=== PATIENT | female | born 1970 | race Caucasian/White ===

== ENCOUNTER → 2023-05-26 06:33 | Outpatient (REF) | payer BC, SELFPAY | LOC: MRI 3T 06:33 | PROVIDERS: ATTENDING PHYSICIAN Orthopaedic Surgery Hand Surgery | DX: M25.512 Pain in left shoulder (principal) | CPT/HCPCS: 73221 ==

== ENCOUNTER → 2023-06-17 08:00 | Outpatient (REF) | payer BC, SELFPAY | LOC: RCS 08:00 | PROVIDERS: ATTENDING PHYSICIAN Orthopaedic Surgery Hand Surgery | DX: Z01.818 Encounter for other preprocedural examination (principal) | CPT/HCPCS: 93005 ==

== ENCOUNTER 2023-06-27 06:02 | Day surgery (SDC) | payer BC, SELFPAY ==
[2023-06-27] VITALS (12 sets, daily range): BP systolic 92–123; BP diastolic 50–76; BMI 22.2
[2023-06-27] MEDS: CELEBREX 200 MG PO (06:30)
[2023-06-27] MEDS: TYLENOL 1000 MG PO (06:31)
[2023-06-27] MEDS: DILAUDID 0.25 MG IV ×2 (09:00→09:16)
[2023-06-27] MEDS: ROXICODONE 5 MG PO (10:04)
== END 2023-06-27 10:40 | disposition home or self-care (01) ==
LOC: SDS 06:02
PROVIDERS: ATTENDING PHYSICIAN Orthopaedic Surgery Hand Surgery
DX: M75.42 Impingement syndrome of left shoulder (principal); S43.432A Superior glenoid labrum lesion of left shoulder, initial encounter; X58.XXXA Exposure to other specified factors, initial encounter
CPT/HCPCS: 29807; 29828; 29826; C1713

== ENCOUNTER 2023-08-03 19:05 | Outpatient (RCR) | payer BC, SELFPAY | END 2023-08-03 23:59 | disposition home or self-care (01) | LOC: RPT 19:05 | PROVIDERS: ATTENDING PHYSICIAN Physician Assistant Surgical; FAMILY PHYSICIAN Family Medicine | DX: Z47.89 Encounter for other orthopedic aftercare (principal); Z53.33 Arthroscopic surgical procedure converted to open procedure; Z73.6 Limitation of activities due to disability | CPT/HCPCS: 97110; 97140; 97163 ==

== ENCOUNTER → 2023-08-21 10:27 | Outpatient (REF) | payer BC, SELFPAY ==
[2023-08-21 12:12] LABS: % Basophils 0.8 % (0-2); % Eosinophils 1.2 % (0-6); % Immature Granulocytes 0.6 % (0-0.5); % Monocytes 6.4 % (1.7-9.3); Absolute Basophils 0.1 10^3/uL (0-0.2); Absolute Eosinophils 0.1 10^3/uL (0-0.7); Absolute Immature Granulocytes 0.1 10^3/uL (0-0.05); Absolute Lymphocytes 2.8 10^3/uL (1.2-3.4); Absolute Monocytes 0.6 10^3/uL (0.1-0.6); Absolute Neutrophils 5.1 10^3/uL (1.4-6.5); Hematocrit 40.5 % (37.0-47.0); Hemoglobin 13.6 g/dL (12.0-16.0); Mean Corp Hgb Conc. 33.6 g/dL (33.0-37.0); Mean Corpuscular Hgb 31.6 pg (27.0-31.0); Nucleated Red Blood Cells % 0 %; Platelet Count 290 10^3/uL (130-400); Red Blood Cell Count 4.31 10^6/uL (4.20-5.40); White Blood Cell Count 8.7 10^3/uL (4.8-10.8)
[2023-08-21 13:05] LABS: IgA 258 mg/dl (70-400)
[2023-08-21 13:30] LABS: Iron 125 ug/dl (37-170)
[2023-08-21 13:33] LABS: Glycohemoglobin (HgbA1c) 5.4 % (4.0-5.6)
[2023-08-21 13:35] LABS: Vitamin D, 25-OH*** 33.9 ng/mL (30-80)
[2023-08-21 13:40] LABS: Percent Saturation 49 % (20-50); Total Iron Binding Capacity 253 ug/dl (265-497)
[2023-08-21 13:49] LABS: TSH Reflex To Free T4 1.46 uIU/ml (0.47-4.68)
[2023-08-21 13:53] LABS: Ferritin 71.5 ng/ml (11.1-264.0)
[2023-08-23 15:27] LABS: Endomysial IgA Antibody Titer <1:10 (<1:10)
[2023-08-23 15:48] LABS: tTG IgA Antibody 7.6 EU/ml (0-19); tTG IgG Antibody 9.5 EU/ml (0-19)
== END ==
LOC: REG 10:27
PROVIDERS: ATTENDING PHYSICIAN Nurse Practitioner; FAMILY PHYSICIAN Family Medicine
DX: R63.5 Abnormal weight gain (principal); N95.1 Menopausal and female climacteric states; R53.83 Other fatigue; Z13.21 Encounter for screening for nutritional disorder; Z13.1 Encounter for screening for diabetes mellitus; R19.8 Other specified symptoms and signs involving the digestive system and abdomen
CPT/HCPCS: 36415; 82306; 82728; 82784; 83001; 83002; 83036; 83516; 83540; 83550; 84443; 85025; 86231

== ENCOUNTER 2023-09-01 06:36 | Outpatient (RCR) | payer BC, SELFPAY | END 2023-09-01 23:59 | disposition home or self-care (01) | LOC: RPT 06:36 | PROVIDERS: ATTENDING PHYSICIAN Physician Assistant Surgical; FAMILY PHYSICIAN Family Medicine | DX: Z47.89 Encounter for other orthopedic aftercare (principal); Z73.6 Limitation of activities due to disability; M62.81 Muscle weakness (generalized); M25.512 Pain in left shoulder | CPT/HCPCS: 97010; 97110; 97140; 97530 ==

== ENCOUNTER 2023-09-26 16:19 | Outpatient (RCR) | payer BC, SELFPAY | END 2023-09-26 23:59 | disposition home or self-care (01) | LOC: RPT 16:19 | PROVIDERS: ATTENDING PHYSICIAN Physician Assistant Surgical; FAMILY PHYSICIAN Family Medicine | DX: Z47.89 Encounter for other orthopedic aftercare (principal); Z73.6 Limitation of activities due to disability; M62.81 Muscle weakness (generalized); M25.512 Pain in left shoulder | CPT/HCPCS: 97010; 97110; 97140 ==

== ENCOUNTER 2023-11-03 09:00 | Outpatient (RCR) | payer BC, SELFPAY | END 2023-11-03 23:59 | disposition home or self-care (01) | LOC: RPT 09:00 | PROVIDERS: ATTENDING PHYSICIAN Orthopaedic Surgery Hand Surgery; FAMILY PHYSICIAN Family Medicine | DX: M25.512 Pain in left shoulder (principal); Z73.6 Limitation of activities due to disability | CPT/HCPCS: 97010; 97110; 97140; 97162 ==

== ENCOUNTER 2023-11-22 08:05 | Outpatient (RCR) | payer BC, MEDICAID, SELFPAY | END 2023-11-22 23:59 | disposition home or self-care (01) | LOC: RPT 08:05 | PROVIDERS: ATTENDING PHYSICIAN Orthopaedic Surgery Hand Surgery; FAMILY PHYSICIAN Family Medicine | DX: M25.512 Pain in left shoulder (principal); Z73.6 Limitation of activities due to disability | CPT/HCPCS: 97010; 97110; 97140 ==